=== PATIENT | female | born 1985 | race Caucasian/White ===

== ENCOUNTER 2024-05-04 15:40 | Emergency (ER) | payer OTHER, BC ==
--- NOTE | 2024-05-04 16:24 | ED ---
Back Pain HPI - General Stated Complaint: [facility]-back injury Time Seen by Provider: 05/04/24 15:58 Source: patient, RN notes reviewed - History of Present Illness Initial Comments: This is a 38-year-old female presents emergency department chief complaint of left lumbar back pain. Patient states that she believes she may have strained her back while at work this afternoon. States that she was loading supplies into a work van a few hours ago before arrival to the emergency department when she strained her left lower back. She denies radiation of pain. Denies paresthesias. She denies falling after the injury. She denies loss of bladder or bowel continence or saddle anesthesias. Denies previous surgeries of her lumbar spine. Denies urinary symptoms. - Related Data Allergies Allergy/AdvReac Type Severity Reaction Status Date / Time No Known Allergies Allergy Verified 05/04/24 16:41 Review of Systems ROS Statement: Those systems with pertinent positive or pertinent negative responses have been documented in the HPI. ROS Other: All systems not noted in ROS Statement are negative. General Exam General appearance: alert, in no apparent distress Eye exam: Present: normal appearance, PERRL, EOMI. Absent: scleral icterus, conjunctival injection, periorbital swelling ENT exam: Present: normal exam, mucous membranes moist Neck exam: Present: normal inspection. Absent: tenderness, meningismus, lymphadenopathy Respiratory exam: Present: normal lung sounds bilaterally. Absent: respiratory distress, wheezes, rales, rhonchi, stridor Cardiovascular Exam: Present: regular rate, normal rhythm, normal heart sounds. Absent: systolic murmur, diastolic murmur, rubs, gallop, clicks GI/Abdominal exam: Present: soft, normal bowel sounds. Absent: distended, tenderness, guarding, rebound, rigid Extremities exam: Present: normal inspection, full ROM, normal capillary refill. Absent: tenderness, pedal edema, joint swelling, calf tenderness Back exam: Present: full ROM (pain with ROM), tenderness (left lumbar spine), muscle spasm (left lumbar) Neurological exam: Present: alert, oriented X3, CN II-XII intact Skin exam: Present: warm, dry, intact, normal color. Absent: rash Course Vital Signs 05/04/24 05/04/24 16:41 18:08 Temperature 98.2 F 98.3 F Pulse Rate 81 83 Respiratory 18 20 Rate Blood Pressure 154/100 159/98 O2 Sat by Pulse 98 98 Oximetry Medical Decision Making - Medical Decision Making Was pt. sent in by a medical professional or institution ([facility] Littlejohn, [employer], urgent care, hospital, or correction...) When possible be specific @ -No Did you speak to anyone other than the patient for history (EMS, parent, family, police, friend...)? What history was obtained from this source @ -No Did you review nursing and triage notes (agree or disagree)? Why? @ -I reviewed and agree with nursing and triage notes Were old charts reviewed (outside hosp., previous admission, EMS record, old EKG, old radiological studies, urgent care reports/EKG's, correction records)? Report findings @ -No old charts were reviewed Differential Diagnosis (chest pain, altered mental status, abdominal pain women, abdominal pain men, vaginal bleeding, weakness, fever, dyspnea, syncope, headache, dizziness, GI bleed, back pain, seizure, CVA, palpatations, mental health, musculoskeletal)? @ -Differential Back Pain: Strain, zoster, cauda equina syndrome, epidural abscess, vertebral osteomyelitis, discitis, fracture, subluxation, disc herniation, DJD, spinal stenosis, dissection, AAA, pancreatitis, peptic ulcer disease, pyelonephritis, kidney stone, this is not meant to be an all-inclusive list. EKG interpreted by me (3pts min.). @ -none X-rays interpreted by me (1pt min.). @ -X-ray of the lumbar spine reveals no acute osseous abnormalities. CT interpreted by me (1pt min.). @ -None done U/S interpreted by me (1pt. min.). @ -None done What testing was considered but not performed or refused? (CT, X-rays, U/S, labs)? Why? @ -None What meds were considered but not given or refused? Why? @ -None Did you discuss the management of the patient with other professionals (professionals i.e. TON[facility] Littlejohn, [employer], lab, RT, psych nurse, manager social media, pinking machine operator, teacher, chief technical officer, manager case)? Give summary @ -No Was smoking cessation discussed for >3mins.? @ -No Was critical care preformed (if so, how long)? @ -No Were there social determinants of health that impacted care today? How? (Homelessness, low income, unemployed, alcoholism, drug addiction, transportation, low edu. Level, literacy, decrease access to med. care, residential, rehab)? @ -No Was there de-escalation of care discussed even if they declined (Discuss DNR or withdrawal of care, Hospice)? DNR status @ -No What co-morbidities impacted this encounter? (DM, HTN, Smoking, COPD, CAD, Cancer, CVA, ARF, Chemo, Hep., AIDS, mental health diagnosis, sleep apnea, morbid obesity)? @ -None Was patient admitted / discharged? Hospital course, mention meds given and route, prescriptions, significant lab abnormalities, going to OR and other pertinent info. @ -Discharged. 38-year-old female with lumbar back pain. On evaluation patient noted to have left lumbar back pain is exacerbated with palpation and range of motion. Negative straight leg test. There are no neurological deficits. There are no symptoms concerning for cauda equina. Patient was offered medication however she has declined. She is provided with a heating pack. X-ray negative for acute process. Recommend that patient continue Tylenol Motrin as needed and continue supportive treatment at home. Discussed with Dr. Castaneda Undiagnosed new problem with uncertain prognosis? @ -No Drug Therapy requiring intensive monitoring for toxicity (Heparin, Nitro, Insulin, Cardizem)? @ -No Were any procedures done? @ -No Diagnosis/symptom? @ -Lumbar back strain Acute, or Chronic, or Acute on Chronic? @ -Acute Uncomplicated (without systemic symptoms) or Complicated (systemic symptoms)? @ -Uncomplicated Side effects of treatment? @ -No Exacerbation, Progression, or Severe Exacerbation? @ -No Poses a threat to life or bodily function? How? (Chest pain, USA, MD, pneumonia, PE, COPD, DKA, ARF, appy, cholecystitis, CVA, Diverticulitis, Homicidal, Suicidal, threat to staff... and all critical care pts) @ -No Disposition Clinical Impression: Back sprain Disposition: HOME SELF-CARE Condition: Good Instructions (If sedation given, give patient instructions): Lower Back Exercises (ED) Additional Instructions: Please return to the Emergency Department if symptoms worsen or any other concerns. Continue supportive treatment at home resting, using heat, and cycle Tylenol and Motrin. Is patient prescribed a controlled substance at d/c from ED?: No Referrals: Narda Salamanca MD [Primary Care Provider] - 1-2 days Time of Disposition: 18:03
--- NOTE | 2024-05-04 17:36 | XR ---
EXAMINATION TYPE: XR lumbar spine 2 or 3V DATE OF EXAM: 05/04/2024 COMPARISON: None HISTORY: Left-sided back pain after lifting injury TECHNIQUE: 3 view lumbar spine FINDINGS: There are 5 lumbar-type vertebral bodies. Pedicles are intact. Vertebral body heights are p reserved. Disc heights are preserved. Alignment is normal. IMPRESSION: 1. No acute osseous abnormalities lumbar spine. [facility], Workstation: [facility], 05/04/2024 5:33 PM
[2024-05-04 18:12] VITALS: BP 159/98; PULSE 83; RESP 20; TEMP 98.3
== END 2024-05-04 18:10 | disposition home or self-care (01) ==
LOC: EC 15:40
CPT/HCPCS: 72100; 99283